=== PATIENT | female | born 1950 | race Caucasian/White ===

== ENCOUNTER 2022-06-24 10:30 | Outpatient (RCR) | payer OTHER, SELFPAY | END 2023-06-15 23:59 | disposition home or self-care (01) | PROVIDERS: PCP Family Medicine; Visit Provider Orthopaedic Surgery Sports Medicine | DX: M25.562 Pain in left knee (principal); Z51.89 Encounter for other specified aftercare | CPT/HCPCS: 97110; 97140; X5282 ==

== ENCOUNTER 2022-07-21 11:15 | Outpatient (RCR) | payer OTHER, SELFPAY | END 2023-03-21 13:41 | disposition home or self-care (01) | PROVIDERS: PCP Family Medicine; Visit Provider Family Medicine | DX: H81.10 Benign paroxysmal vertigo, unspecified ear (principal); Z51.89 Encounter for other specified aftercare | CPT/HCPCS: 95992; 97162; 97535 ==

== ENCOUNTER 2023-08-31 07:59 | Outpatient (CLI) | payer MEDICARE, BC, SELFPAY ==
--- NOTE | 2023-08-31 08:15 | CRLHL7_ITS ---
For Patients: As a result of the Century Cures Act, medical imaging exams and procedure reports are released immediately into your electronic medical record. You may view this report before your referring provider. If you have questions, please contact your health care provider. INDICATION: Pituitary adenoma. TECHNIQUE: Multiplanar multisequence MR imaging acquired the brain and sella prior to and following intravenous contrast. COMPARISON: MRI brain 04/12/2022. FINDINGS: Heterogeneously enhancing lesion centered within the right sella measuring 15 x 13 x 14 mm (TR/AP/CC), not significantly changed. Mild leftward deviation of the pituitary infundibulum. No mass effect on the optic chiasm or prechiasmatic optic nerves. The lesion extends to the medial right cavernous internal carotid artery without convincing right cavernous sinus invasion. Prominence of the ventricles and sulci compatible with mild diffuse cerebral volume loss. No midline shift or hydrocephalus. Stable patchy and scattered FLAIR hyperintensities in the supratentorial white matter and carrington, typical for moderate chronic microvascular ischemic changes. No intracranial hemorrhage or pathologic extra-axial fluid collection. No diffusion restriction to suggest acute infarction. No pathologic intra-axial enhancement. Developmental venous anomaly right cerebellar hemisphere, an anatomic variant. The major arterial flow voids of the skullbase are preserved. The globes are symmetric. Minimal ethmoid sinus mucosal thickening. Trace mastoid fluid bilaterally. IMPRESSION: 1. No significant change compared to the MRI dated 04/12/2022. 2. 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 No mass effect on the optic chiasm or cavernous sinus invasion. 3. Moderate chronic microvascular ischemic changes and mild diffuse cerebral volume loss. Dictated by Ean Carrillo MD @ 08/31/2023 6:01:34 PM (Electronically Signed)
== END 2023-08-31 08:00 | disposition home or self-care (01) ==
LOC: MRI 08:02
PROVIDERS: PCP Surgery; Visit Provider Family Medicine
DX: D35.2 Benign neoplasm of pituitary gland (principal); I67.82 Cerebral ischemia
CPT/HCPCS: 70553; A9575

== ENCOUNTER 2023-09-11 07:49 | Outpatient (CLI) | payer MEDICARE, BC, SELFPAY ==
--- NOTE | 2023-09-11 09:04 | W.ANESCHARGE ---
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
--- NOTE | 2023-09-11 10:22 | W.ANESCHARGE ---
Anesthesia Charges Start Date/Time Anesthesia Start Date: 09/11/23 Anesthesia Start Time: 08:34 Stop Date/Time Anesthesia Stop Date: 09/11/23 Anesthesia Stop Time: 09:02 Summary Extremes of Age - Over 70 or under 1: MDA
== END 2023-09-11 07:50 | disposition home or self-care (01) ==
PROVIDERS: PCP Surgery; Visit Provider Internal Medicine Gastroenterology
DX: Z12.11 Encounter for screening for malignant neoplasm of colon (principal); K63.5 Polyp of colon; K64.8 Other hemorrhoids; Z86.010 Personal history of colon polyps
CPT/HCPCS: 00811; 45385; 88305; 99100; J2704

== ENCOUNTER 2024-03-20 09:03 | Outpatient (CLI) | payer MEDICARE, BC, SELFPAY ==
--- NOTE | 2024-03-20 09:15 | MR_ITS ---
Patient: JB KIM Facility:?[facility] Patient ID:?[id number] Site Patient ID:?[id number]. Site :?[id number] Study:?MRI-Abdomen W/ and W/O Cont 14cc dotarem MRCP/Panc-03/20/2024 10:30:23 AM Ordering Physician:?Adan Orellana Final Report: INDICATION: Cystic lesions pancreas; follow-up. COMPARISON: MRCP and MRI of the abdomen 04/12/2022, 11/12/2020, May 08, 2019 and May 09, 2018. TECHNIQUE: MRCP; precontrast T1 and T2 weighted imaging; T2 haste imaging; diffusion- weighted imaging; in and out of phase imaging; postcontrast imaging; 14 cc of MultiHance contrast was injected. FINDINGS: Multiple cystic lesions identified in the pancreas. A 1.4 cm lesion in the tail of the pancreas. A 0.9 cm lesion in the head of the pancreas. A 0.9 cm lesion and 0.7 cm lesion in the uncinate process of the pancreas. No evidence of pancreatic ductal dilatation. Cholelithiasis. No biliary duct dilatation. The liver, spleen and adrenal glands are normal. IMPRESSION: 1. Multiple cystic lesions pancreas; side-branch IPMN; stable; follow-up in 2 years suggested. 2. Gallstones Dictated by Marcia Griggs MD @ 03/21/2024 1:15:47 PM Signed by:?Marcia Griggs MD @03/21/2024 1:15:47 PM (Electronic Signature)
== END 2024-03-20 09:04 | disposition home or self-care (01) ==
LOC: MRI 09:07
PROVIDERS: PCP Surgery
DX: K86.2 Cyst of pancreas (principal); K80.20 Calculus of gallbladder without cholecystitis without obstruction
CPT/HCPCS: 74183; A9575

== ENCOUNTER 2024-04-26 14:59 | Emergency (ER) | payer MEDICARE, BC, SELFPAY ==
[2024-04-26] VITALS (10 sets, daily range): BP systolic 115–133; BP diastolic 88–105; PULSE 79–142; RESP 18; TEMP 36.4; O2SAT 95–97; BMI 23.4
--- NOTE | 2024-04-26 15:16 | CRLHL7_ITS ---
For Patients: As a result of the Century Cures Act, medical imaging exams and procedure reports are released immediately into your electronic medical record. You may view this report before your referring provider. If you have questions, please contact your health care provider. Indication: Tachycardia Comparison: None available. Technique: Single AP view chest Findings: There is hyperinflation and chronic interstitial change. There is no focal consolidation, effusion, or pneumothorax. The cardiac silhouette is mildly prominent. The bony thorax is grossly intact. Impression: No acute cardiopulmonary abnormality. Dictated by Alvarez Diaz MD @ 04/26/2024 4:13:24 PM (Electronically Signed)
[2024-04-26] MEDS: 0.9 % SODIUM CHLORIDE 1000 ml 1,000 ML IV (15:30)
[2024-04-26 15:35] LABS: Basophils Absolute Auto 0.05 K/uL (0.00-0.30); Basophils Percent Auto 0.7 % (0.0-3.0); Eosinophils Absolute Auto 0.25 K/uL (0.00-0.50); Eosinophils Percent Auto 3.6 % (0.0-7.0); Hematocrit 43.7 % (33.0-51.0); Hemoglobin* 14.3 gm/dL (12.0-16.0); Lymphocytes Absolute Auto 2.31 K/uL (0.90-2.90); Lymphocytes Percent Auto 33.5 % (20-44); Mean Corpuscular HGB Conc 33 gm/dL (32-36); Mean Corpuscular Hemoglobin 30 pg (26-34); Mean Corpuscular Volume 93 fL (80-100); Monocytes Percent Auto 8.9 % (0.0-11.0); Neutrophils Absolute Auto 3.67 K/uL (1.7-7.0); Neutrophils Percent Auto 53.3 % (42.0-72.0); Platelet Count* 313 K/uL (140-440); RDW Coefficient of Variation % 13.2 % (11.5-15.5); Red Blood Count 4.72 m/uL (4.00-5.20); White Blood Count* 6.89 K/uL (4.50-11.00)
[2024-04-26 15:36] LABS: Slide Review Reflex No
[2024-04-26 15:42] LABS: Troponin, Point-of-Care* 0.01 ng/ml (0.01-0.04)
[2024-04-26] MEDS: ADENOSINE 6 MG/2ML INJ IVP (15:45)
[2024-04-26 15:48] LABS: Chloride* 104 mmol/L (96-114); Potassium* 3.9 mmol/L (3.6-5.1); Sodium* 138 mmol/L (135-149)
[2024-04-26 15:51] LABS: Anion Gap 9 mEq/L (7-15); Blood Urea Nitrogen* 16 mg/dL (7-30); Carbon Dioxide* 25 mmol/L (20-32); Creatinine* 0.7 mg/dL (0.5-1.5); Estimated Glomerular Filt Rate 92 ml/min
[2024-04-26 15:52] LABS: Calcium* 9.1 mg/dL (8.4-10.6); Glucose* 89 mg/dL (60-115); Magnesium* 1.9 mg/dL (1.5-2.6)
--- NOTE | 2024-04-26 16:10 | ED_ITS ---
HPI - General Adult General Date Seen: 04/26/24 Chief complaint: Unspecified Complaint, Adult Stated complaint: Elevated heartrate Time Seen by Provider: 04/26/24 15:07 Source: patient, RN notes reviewed and old records reviewed Mode of arrival: ambulatory Limitations: no limitations History of Present Illness HPI narrative: Patient is a 73-year-old woman he sent here from clinic. She had gone to clinic just for an annual exam, no specific complaints. Noted to be tachycardic there and had an EKG, suspicion of SVT and was sent here. She denies palpitations, chest pain, shortness of breath, no recent illness, fevers, vomiting, diarrhea, black or bloody stools etcetera. No history of arrhythmia that she knows of but she does say that her dad and brother both had atrial fibrillation. Her dad is . She is unsure whether her brother is anticoagulated. She does not smoke or drink, here with her . Related Data Home Medications ?Medication ?Instructions ?Recorded ?Confirmed famotidine 20 mg tablet 20 mg PO DAILY 07/27/23 04/26/24 levothyroxine 88 mcg tablet mcg PO 07/27/23 07/27/23 calcium phos,dibas-vitamin D3 PO 04/26/24 vitamin B complex PO 04/26/24 Previous Rx's ?Medication ?Instructions ?Recorded apixaban 5 mg tablet (Eliquis) 5 mg PO BID #60 tabs 04/26/24 Allergies Allergy/AdvReac Type Severity Reaction Status Date / Time No Known Drug Allergies Allergy Verified 04/26/24 15:04 Review of Systems Status of ROS: Reports: 10 or more systems reviewed and unremarkable except as noted in History and below PFSH PFS Social History Smoking Status: Never smoker Do you use any of these nicotine containing products: None Second hand tobacco smoke exposure: No How often do you have a drink containing alcohol: never AUDIT-C Alcohol total score: 0 Non-prescribed substance use: denies use service: No Exam Narrative: Exam Narrative: Vital signs as noted above. In general, an alert, well-appearing patient. Breathing easily. Head: Normocephalic, atraumatic. Eyes: Pupils are equal reactive. Extraocular movements are full. Conjunctivae are normal. ENT: Mucous membranes are moist. Neck: Supple without lymphadenopathy. Heart: Tachycardic, regular. No significant murmur. Lungs: Clear bilaterally. No increased work of breathing, crackles or wheezes. Abdomen: Soft and nontender. No organomegaly. Extremities: Well perfused. No edema. No calf tenderness. Pulses intact. Neurologic: Patient is alert and oriented to person and place. Speech is fluent. Face is symmetric. Moves all extremities equally. Affect: Normal. Skin: Warm and dry. Well perfused. Const: Vital Signs, click to edit/add: Vital Signs - 24 hr 04/26/24 15:00 04/26/24 15:16 Temperature 97.6 F Pulse Rate [Pulse Oximeter] 142 H Respiratory Rate 18 Blood Pressure [Ri ght Upper Arm] 131/88 Pulse Oximetry 97 97 Oxygen Delivery Me thod Room Air Documenting provider has reviewed patient's vital signs: yes Course Course ED Course: Patient had an EKG here, this shows an atrial tachycardia ventricular rate of 136 beats per minute. There is subtle variability in her rate, no obvious P waves. I do not think this is likely SVT, suspect atrial flutter. No acute ST segment changes with the exception of T-wave inversion in V2. I elected to try adenosine on the off chance this was an SVT, she had 6 mg, she had bradycardia after that with clear flutter waves. Labs drawn, thus far she has a normal white blood cell count of 6.9 and hemoglobin of 14.3, electrolytes normal, magnesium 1.9, TSH pending. Point of care troponin was 0.01. It is unclear how long she has been in this rhythm, I do not think cardioversion is safe and I recommended against that. Will try rate control, plan for admission to the hospital. Began discussion of anticoagulation as well. We gave a dose of diltiazem here, patient actually converted to sinus rhythm shortly thereafter with a ventricular rate of 85 beats per minute. EKG repeated, this shows a sinus rhythm, first-degree AV block with a KS of 220. Ventricular rate of 79. No acute ST segment changes, T-waves are unremarkable. At this time I think it is reasonable to discharge home. I did recommend at least a short course of anticoagulation, she notes that she has a muscular dystrophy and walks with a cane, but has not fallen for quite some time. I think particularly in light of the fact that she spontaneously converted it would be best to err on the side of anticoagulation right now. I asked her to follow up with Dr. Hope in the near future to discuss duration of anticoagulation. I prescribed Eliquis. Her TSH returned at 5, free T4 is pending. In any case, would not suspect significant hyperthyroidism, will discharge home and call with results of needed. For recurrent symptoms, chest pain, difficulty breathing, lightheadedness or fainting etcetera, return any time. Otherwise outpatient follow-up as discussed. Vital Signs Vital signs: Initial Vital Signs Temperature 97.6 F 04/26/24 15:00 Temperature Source Temporal Artery Scan 04/26/24 15:00 Pulse Rate 142 H 04/26/24 15:00 Respiratory Rate 18 04/26/24 15:00 Blood Pressure 131/88 04/26/24 15:00 Blood Pressure Mean 102 04/26/24 15:00 Blood Pressure Position Sitting 04/26/24 15:00 Pulse Oximetry 97 04/26/24 15:00 Oxygen Delivery Method Room Air 04/26/24 15:00 Vital Signs Temperature 97.6 F 04/26/24 15:00 Pulse Rate 142 H 04/26/24 15:00 Respiratory Rate 18 04/26/24 15:00 Blood Pressure 131/88 04/26/24 15:00 Pulse Oximetry 97 04/26/24 15:00 Oxygen Delivery Method Room Air 04/26/24 15:00 Temperature 97.6 F 04/26/24 15:00 Pulse Rate 142 H 04/26/24 15:00 Respiratory Rate 18 04/26/24 15:00 Blood Pressure 131/88 04/26/24 15:00 Pulse Oximetry 97 04/26/24 15:16 Oxygen Delivery Method Room Air 04/26/24 15:00 Medications Administered Medications: Discontinued Medications Generic Name Dose Route Start Last Admin Trade Name Freq PRN Reason Stop Dose Admin Adenosine 6 mg 04/26/24 15:27 04/26/24 15:45 Adenosine 6 Mg/2ml Inj IVP 04/26/24 15:28 6 mg ONCE ONE Administration Diltiazem HCl 10 mg 04/26/24 16:05 04/26/24 16:21 Diltiazem 5 Mg/Ml Inj IVP 04/26/24 16:06 10 mg ONCE ONE Administration Sodium Chloride 1,000 mls @ 1,000 mls/hr 04/26/24 15:30 04/26/24 16:39 0.9 % Sodium Chloride 1000 Ml IV 04/26/24 16:29 Infused .Q1H MARIA ELENA Infusion Medical Decision Making Lab Data Labs: Lab Results 04/26/24 Range/Units 15:22 WBC 6.89 (4.50-11.00) K/uL RBC 4.72 (4.00-5.20) m/uL Hgb 14.3 (12.0-16.0) gm/dL Hct 43.7 (33.0-51.0) % MCV 93 (80-100) fL MCH 30 (26-34) pg MCHC 33 (32-36) gm/dL RDW Coeff of Sriram 13.2 (11.5-15.5) % Plt Count 313 (140-440) K/uL Neut % (Auto) 53.3 (42.0-72.0) % Lymph % (Auto) 33.5 (20-44) % [place] % (Auto) 8.9 (0.0-11.0) % Eos % (Auto) 3.6 (0.0-7.0) % Baso % (Auto) 0.7 (0.0-3.0) % Neut # (Auto) 3.67 (1.7-7.0) K/uL Lymph # (Auto) 2.31 (0.90-2.90) K/uL [place] # (Auto) 0.60 (0.00-0.90) K/UL Eos # (Auto) 0.25 (0.00-0.50) K/uL Baso # (Auto) 0.05 (0.00-0.30) K/uL Abs Immat Gran (auto) 0.00 (0.00-0.30) K/uL Imm/Tot Granulo (auto) 0.0 % Sodium 138 (135-149) mmol/L Potassium 3.9 (3.6-5.1) mmol/L Chloride 104 (96-114) mmol/L Carbon Dioxide 25 (20-32) mmol/L Anion Gap 9 (7-15) mEq/L BUN 16 (7-30) mg/dL Creatinine 0.7 (0.5-1.5) mg/dL Estimated Creat Clear 48.30 Estimated GFR 92 ml/min Glucose 89 (60-115) mg/dL Calcium 9.1 (8.4-10.6) mg/dL Magnesium 1.9 (1.5-2.6) mg/dL TSH 5.970 H (0.270-4.200) uIU/mL POC Troponin I 0.01 (0.01-0.04) ng/ml Discharge Plan Discharge Clinical Impression: Atrial flutter with rapid ventricular response Patient Disposition: Home, Self-Care Condition: Improved Instructions: Atrial Flutter (DC), Blood Thinners (ED) Additional Instructions: Would recommend at least short term anticoagulation, please make a follow-up appointment with your primary doctor to discuss further. If you have palpitations, chest pain, difficulty breathing, other worsening, return any time. Prescriptions: New Eliquis 5 mg tablet 5 mg PO BID Qty: 60 2RF No Action levothyroxine 88 mcg tablet PO famotidine 20 mg tablet 20 mg PO DAILY vitamin B complex [Vitamin B-50 Complex] PO calcium phos,dibas-vitamin D3 [Vitamin D (with calcium)] PO Follow Up/Referrals: Jimmy Hope MD [Primary Care Provider] - Stand Alone Forms: [facility] Info Instructions
[2024-04-26] MEDS: dilTIAZem 5 MG/ML inj 10 MG IVP (16:21)
[2024-04-26 17:16] LABS: Free T4 Free Thyroxine* 1.56 ng/dL (0.70-1.85)
== END 2024-04-26 17:09 | disposition home or self-care (01) ==
PROVIDERS: Emergency Provider Emergency Medicine; PCP Surgery
DX: I48.20 Chronic atrial fibrillation, unspecified (principal)
CPT/HCPCS: 36415; 71045; 80048; 83735; 84439; 84443; 84484; 85025; 93005; 94761; 99284; 99285; J0153; J7030

== ENCOUNTER 2024-05-01 13:08 | Emergency (ER) | payer MEDICARE, BC, SELFPAY ==
[2024-05-01] VITALS (11 sets, daily range): BP systolic 114–123; BP diastolic 87–100; PULSE 73–142; RESP 16–18; TEMP 36.6; O2SAT 93–96; BMI 23.4
--- NOTE | 2024-05-01 13:15 | ED_ITS ---
HPI - General Adult General Chief complaint: Arrhythmia/Palpitations Stated complaint: Tachy at lunch -[facility] sent from [facility] Time Seen by Provider: 05/01/24 13:14 History of Present Illness HPI narrative: Patient here for tachycardia . Here for same event last week and responded to diltiazem. She does not know when she flipped into it , daughter noted at lunch today. Asymptomatic. Stopped Eliquis , started a baby aspirin because Eliquis wasn't tolerated well. 73-year-old woman presenting to the emergency department with concern of rapid heart rate. Per my review of records was actually seen in this department last week with suspected atrial flutter. Did receive diltiazem during this evaluation and apparently subsequently converted. Daughter just happened to check her pulse today at lunch noting it to be rapid. Is not feeling particularly unwell otherwise. Had been recommended to be taking Eliquis but thought that she might be feeling more lightheaded with the Eliquis and so started a baby aspirin instead. Is not feeling short of breath. No chest pain. Incidentally has trouble taking larger pills in particular. Related Data Home Medications ?Medication ?Instructions ?Recorded ?Confirmed famotidine 20 mg tablet 20 mg PO DAILY 07/27/23 04/26/24 levothyroxine 88 mcg tablet mcg PO 07/27/23 07/27/23 calcium phos,dibas-vitamin D3 PO 04/26/24 vitamin B complex PO 04/26/24 aspirin 81 mg capsule 81 mg PO DAILY 05/01/24 05/01/24 Previous Rx's ?Medication ?Instructions ?Recorded apixaban 5 mg tablet (Eliquis) 5 mg PO BID #60 tabs 04/26/24 diltiazem HCl 120 mg capsule,24 120 mg PO DAILY #30 caps 05/01/24 hr,extended release Allergies Allergy/AdvReac Type Severity Reaction Status Date / Time No Known Drug Allergies Allergy Verified 04/26/24 15:04 Review of Systems Status of ROS: Reports: 6 or more systems reviewed and unremarkable except as noted in History and below PFSH PFS Social History Smoking Status: Never smoker Do you use any of these nicotine containing products: None Second hand tobacco smoke exposure: No How often do you have a drink containing alcohol: never AUDIT-C Alcohol total score: 0 Non-prescribed substance use: denies use service: No Exam Narrative: Exam Narrative: Pleasant. NAD. Breathing easily. Lungs are clear. Next lower extremities without notable edema. Well-perfused. Heart in tachycardic what appears to be regular rhythm. Murmur noted. Abdomen soft nontender. Cranial nerves 2-12 intact. Const: Vital Signs, click to edit/add: Vital Signs - 24 hr 05/01/24 13:20 05/01/24 13:20 05/01/24 13:21 Temperature 97.9 F Pulse Rate 138 H 139 H Pulse Rate [Pulse Oximeter] 140 H Respiratory Rate 18 Blood Pressure 123/100 H Blood Pressure [Ri ght Upper Arm] 123/100 H Pulse Oximetry 94 94 94 Oxygen Delivery Me thod Room Air 05/01/24 13:30 05/01/24 13:45 05/01/24 13:59 Temperature Pulse Rate 125 H 128 H 142 H Pulse Rate [Pulse Oximeter] Respiratory Rate Blood Pressure 114/87 Blood Pressure [Ri ght Upper Arm] Pulse Oximetry 95 93 94 Oxygen Delivery Me thod 05/01/24 14:00 05/01/24 14:15 05/01/24 14:30 Temperature Pulse Rate 77 81 78 Pulse Rate [Pulse Oximeter] Respiratory Rate 16 Blood Pressure Blood Pressure [Ri ght Upper Arm] Pulse Oximetry 94 95 94 Oxygen Delivery Me thod 05/01/24 14:48 05/01/24 15:00 05/01/24 15:15 Temperature Pulse Rate 82 75 73 Pulse Rate [Pulse Oximeter] Respiratory Rate Blood Pressure Blood Pressure [Ri ght Upper Arm] Pulse Oximetry 96 95 94 Oxygen Delivery Me thod Documenting provider has reviewed patient's vital signs: yes Course Vital Signs Vital signs: Initial Vital Signs Temperature 97.9 F 05/01/24 13:20 Temperature Source Temporal Artery Scan 05/01/24 13:20 Pulse Rate 138 H 05/01/24 13:20 Respiratory Rate 18 05/01/24 13:20 Blood Pressure 123/100 H 05/01/24 13:20 Blood Pressure Mean 107 H 05/01/24 13:20 Blood Pressure Position Sitting 05/01/24 13:20 Pulse Oximetry 94 05/01/24 13:20 Oxygen Delivery Method Room Air 05/01/24 13:20 Vital Signs Temperature 97.9 F 05/01/24 13:20 Pulse Rate 138 H 05/01/24 13:20 Respiratory Rate 18 05/01/24 13:20 Blood Pressure 123/100 H 05/01/24 13:20 Pulse Oximetry 94 05/01/24 13:20 Oxygen Delivery Method Room Air 05/01/24 13:20 Temperature 97.9 F 05/01/24 13:20 Pulse Rate 73 05/01/24 15:15 Respiratory Rate 16 05/01/24 14:30 Blood Pressure 114/87 05/01/24 13:59 Pulse Oximetry 94 05/01/24 15:15 Oxygen Delivery Method Room Air 05/01/24 13:20 Medications Administered Medications: Discontinued Medications Generic Name Dose Route Start Last Admin Trade Name Freq PRN Reason Stop Dose Admin Diltiazem HCl 20 mg 05/01/24 13:42 05/01/24 15:07 Diltiazem 5 Mg/Ml Inj IVP 05/01/24 13:43 Not Given ONCE ONE Sodium Chloride 1,000 mls @ 1,000 mls/hr 05/01/24 13:42 05/01/24 15:06 0.9 % Sodium Chloride 1000 Ml IV 05/01/24 14:41 Infused .Q1H ONE Infusion Medical Decision Making MDM Narrative Medical decision making narrative: Does appear to be in an AFib or aflutter. I have reviewed all EKGs. See below. will be placing IV and slowing rate with diltiazem for better evaluation. Continue to monitor on surveillance monitor. Probably does not need recheck of labs pending further developments. During placement of IV appears to have spontaneously converted into normal sinus. See below. Received L of normal saline but not the diltiazem. Reviewed EKGs from prior visit and clinic and today with Cardiology. They do suspect an unusual atrial flutter Otherwise feeling well. Blood pressure and pulse are good upon departure. See patient discharge plan for further discussion/recommendations. Medical Records Medical records reviewed: Yes I reviewed the patient's medical records Lab Data Lab results reviewed: Yes I reviewed the patient's lab results (From prior visit) ECG Data Attestation: I personally reviewed and interpreted this ECG as follows: (EKGs reviewed from clinic which appear to show an SVT or sinus tach between 133 and 134. EKG 1. Here in the ER with possible atrial fibrillation rate of 127. It is not exactly as regular as I might expect with an aflutter. Second EKG after apparent spontaneous conversion with IV start is sinus 75) Critical Care Time Critical Care Time Critical Care Time: Yes Attestation: The patient required my highest level preparedness to intervene emergently and I personally spent this critical care time directly and personally managing the patient. This critical care time included: Obtaining a history; Examining the patient; Pulse oximetry; Ordering and reviewing of studies; Arranging urgent treatment with development of a management plan; Evaluation of patients response to treatment; Frequent reassessment discussions with other providers. This critical care time was performed to assess and manage the high probability of imminent life-threatening deterioration that could result in multiorgan failure. It was exclusive of separate billable procedures and treating other patients and teaching time. Total Critical Care Time in Minutes: 50 Discharge Plan Discharge Clinical Impression: Atrial flutter, Tachyarrhythmia Patient Disposition: Home w/ Parent or Adult Condition: Improved Additional Instructions: I spoke with [facility] today. They are hoping to get you in earlier than scheduled. Otherwise follow-up with the monitoring and echocardiogram as planned. Continue to focus on hydration probably drinking around 2-3 L of water/liquid daily. Recommendations are to take diltiazem daily as discussed. If you cannot tolerate these pills, there might be your a kind we can crush but then you might have to take it twice a day. I am not sure there is a liquid option. Can check with your pharmacy if necessary. This medicine is to slow down the rate of your heart and decrease the likelihood that you go into an inefficient or uncomfortable rapid rhythm. Recommendations also are to start Eliquis. I do think that the symptoms you are describing are more likely related to the rate of your heart than a reaction otherwise to the medication If you do not want to take the Eliquis, at least take a low-dose aspirin daily. Prescriptions: New diltiazem HCl 120 mg capsule,extended release 24 hr 120 mg PO DAILY Qty: 30 1RF No Action levothyroxine 88 mcg tablet PO famotidine 20 mg tablet 20 mg PO DAILY aspirin 81 mg capsule 81 mg PO DAILY vitamin B complex [Vitamin B-50 Complex] PO calcium phos,dibas-vitamin D3 [Vitamin D (with calcium)] PO Eliquis 5 mg tablet 5 mg PO BID Qty: 60 2RF Follow Up/Referrals: Jimmy Hope MD [Primary Care Provider] - Stand Alone Forms: [employer] Info Instructions
[2024-05-01] MEDS: 0.9 % SODIUM CHLORIDE 1000 ml 1,000 ML IV (13:59)
== END 2024-05-01 15:48 | disposition home or self-care (01) ==
PROVIDERS: Emergency Provider Family Medicine; PCP Surgery
DX: I48.92 Unspecified atrial flutter (principal); R00.0 Tachycardia, unspecified
CPT/HCPCS: 93005; 99284; 99285; 99291; J7030

== ENCOUNTER 2024-09-23 14:02 | Emergency (ER) | payer MEDICARE, BC, SELFPAY ==
[2024-09-23] VITALS (18 sets, daily range): BP systolic 96–126; BP diastolic 67–96; PULSE 69–136; RESP 20; TEMP 36.5; O2SAT 93–97; BMI 21.8
[2024-09-23] MEDS: 0.9 % SODIUM CHLORIDE 1000 ml 1,000 ML IV (14:25)
[2024-09-23] MEDS: dilTIAZem 5 MG/ML inj 20 MG IVP (14:25)
[2024-09-23 14:31] LABS: Lactate* 2.7 mmol/L (0.5-1.9)
[2024-09-23 14:39] LABS: Basophils Absolute Auto 0.05 K/uL (0.00-0.30); Basophils Percent Auto 0.6 % (0.0-3.0); Eosinophils Absolute Auto 0.13 K/uL (0.00-0.50); Eosinophils Percent Auto 1.7 % (0.0-7.0); Hematocrit 41.8 % (33.0-51.0); Hemoglobin* 13.5 gm/dL (12.0-16.0); Immature Granulocytes Abs Auto 0.01 K/uL (0.00-0.30); Immature Granulocytes Pct Auto 0.1 %; Lymphocytes Absolute Auto 2.11 K/uL (0.90-2.90); Lymphocytes Percent Auto 27.1 % (20-44); Mean Corpuscular HGB Conc 32 gm/dL (32-36); Mean Corpuscular Hemoglobin 30 pg (26-34); Mean Corpuscular Volume 94 fL (80-100); Monocytes Percent Auto 7.1 % (0.0-11.0); Neutrophils Absolute Auto 4.93 K/uL (1.7-7.0); Neutrophils Percent Auto 63.4 % (42.0-72.0); Platelet Count* 270 K/uL (140-440); Red Blood Count 4.47 m/uL (4.00-5.20); White Blood Count* 7.78 K/uL (4.50-11.00)
[2024-09-23 14:48] LABS: Albumin* 4.2 g/dL (3.3-5.0); Chloride* 98 mmol/L (96-114); Potassium* 3.6 mmol/L (3.6-5.1); Sodium* 134 mmol/L (135-149)
[2024-09-23 14:50] LABS: Creatinine* 0.8 mg/dL (0.5-1.5); Est. Creatinine Clearance* 50.18; Estimated Glomerular Filt Rate 79 ml/min
[2024-09-23 14:51] LABS: Alanine Aminotransferase* 25 U/L (4-35); Alkaline Phosphatase* 66 U/L (40-150); Anion Gap 11 mEq/L (7-15); Aspartate Amino Transferase* 30 U/L (12-35); Bilirubin Direct* 0.1 mg/dL (0.0-0.5); Bilirubin Total* 0.6 mg/dL (0.1-1.5); Blood Urea Nitrogen* 22 mg/dL (7-30); Calcium* 9.1 mg/dL (8.4-10.6); Carbon Dioxide* 25 mmol/L (20-32); Glucose* 134 mg/dL (60-115); Magnesium* 1.8 mg/dL (1.5-2.6); Total Protein* 7.3 g/dL (6.0-8.3)
[2024-09-23 15:07] LABS: Troponin I* < 0.01 ng/mL (0.01-0.04)
[2024-09-23 15:12] LABS: Slide Review Reflex No
--- NOTE | 2024-09-23 15:19 | ED_ITS ---
HPI - General Adult General Chief complaint: Arrhythmia/Palpitations Stated complaint: A Fib Time Seen by Provider: 09/23/24 14:11 Source: patient Mode of arrival: ambulatory Limitations: no limitations History of Present Illness HPI narrative: 73-year-old female presenting to the ER today complaining of feeling unwell. Patient states that she woke up feeling normal this morning and then late morning started feeling unwell. She really can not describe it any more than that. She then took her pulse and it was in the 130s. She is not feeling short of breath. She is not dizzy or lightheaded. She denies chest pain. Patient does have a history of atrial flutter with that converted with diltiazem and then spontaneously converted the 2nd time this spring. She states that she saw cardiology and they did not recommend anticoagulant as she felt very dizzy when she was on Eliquis. She denies any recent illness. She denies changes in her appetite, diarrhea or decreased p.o. intake. Related Data Home Medications ?Medication ?Instructions ?Recorded ?Confirmed levothyroxine 88 mcg tablet mcg PO 07/27/23 07/27/23 calcium phos,dibas-vitamin D3 PO 04/26/24 vitamin B complex PO 04/26/24 aspirin 81 mg capsule 81 mg PO DAILY 05/01/24 09/23/24 rosuvastatin 5 mg tablet 5 mg PO DAILY 09/23/24 09/23/24 Previous Rx's ?Medication ?Instructions ?Recorded diltiazem HCl 120 mg capsule,24 120 mg PO DAILY #30 caps 05/01/24 hr,extended release Allergies Allergy/AdvReac Type Severity Reaction Status Date / Time No Known Drug Allergies Allergy Verified 04/26/24 15:04 Review of Systems Status of ROS: Reports: 10 or more systems reviewed and unremarkable except as noted in History and below PFSH PFS Social History Smoking Status: Never smoker Do you use any of these nicotine containing products: None Second hand tobacco smoke exposure: No How often do you have a drink containing alcohol: never AUDIT-C Alcohol total score: 0 Non-prescribed substance use: denies use service: No Exam Narrative: Exam Narrative: Well-nourished well-developed patient in no acute distress. Alert and oriented. Answers questions appropriately. Mood and affect are appropriate. Thoughts are goal oriented and rational. No tangential or magical thinking noted. Patient speaks in full sentences without needing to catch her breath. HEENT: Normocephalic atraumatic. Pupils are equally round reactive to light. Extraocular muscles are intact. Conjunctivae are moist without any icterus noted. Moist mucous membranes. Posterior pharynx is normal. Neck is soft. Cardiovascular: Tachycardic. Lungs: Clear to auscultation bilaterally no wheezes rhonchi or rales are appreciated. Patient takes deep breaths without any discomfort. Abdomen: Soft and nontender nondistended with normal bowel sounds. Extremities: Bilateral lower extremities are without edema. Skin: Well perfused. Const: Vital Signs, click to edit/add: Vital Signs - 24 hr 09/23/24 14:04 09/23/24 14:12 09/23/24 14:13 Temperature 97.7 F Pulse Rate 136 H 128 H Pulse Rate [Pulse Oximeter] 135 H Respiratory Rate 20 Blood Pressure 126/96 H Blood Pressure [Ri ght Upper Arm] 104/75 Pulse Oximetry 94 95 95 Oxygen Delivery Me thod Room Air 09/23/24 14:15 09/23/24 14:18 09/23/24 14:28 Temperature Pulse Rate 136 H 114 H Pulse Rate [Pulse Oximeter] Respiratory Rate Blood Pressure 107/68 Blood Pressure [Ri ght Upper Arm] Pulse Oximetry 95 96 93 Oxygen Delivery Me thod 09/23/24 14:30 09/23/24 14:36 09/23/24 14:42 Temperature Pulse Rate 101 H 79 84 Pulse Rate [Pulse Oximeter] Respiratory Rate Blood Pressure 96/69 107/74 Blood Pressure [Ri ght Upper Arm] Pulse Oximetry 94 94 94 Oxygen Delivery Me thod 09/23/24 14:45 Temperature Pulse Rate 80 Pulse Rate [Pulse Oximeter] Respiratory Rate Blood Pressure Blood Pressure [Ri ght Upper Arm] Pulse Oximetry 94 Oxygen Delivery Me thod Course Course ED Course: EKG, read by me, shows atrial flutter with a pulse of 130. Patient has an IV started and placed on the gambling monitor. On the monitor the pulse ranges from 130 to 135. 1 L of normal saline and Cardizem is ordered. Labs were drawn: CBC is normal. Sodium slightly down at 134, remainder of chemistries are normal. Glucose 134. LFTs are normal. Magnesium is normal. Troponin is normal. Lactate is elevated at 2.7. Patient's pulse came down into the 70s after Cardizem however, she did not convert into sinus rhythm and remained in a flutter. She remains hemodynamically stable and states that she feels significantly bet ter. Repeat EKG shows atrial flutter with a pulse of 68. I did speak to Cardiology, Dr. Bruce at [facility], he recommends anticoagulation, a ZIO patch and having her follow-up with cardiology. We also considered increasing her diltiazem however, her blood pressure is low at 107/74. I do not think she would tolerate increasing Cardizem at this time. Had this conversation with the patient, she states that she still has Eliquis at home and she is willing to give that another try. Vital Signs Vital signs: Initial Vital Signs Temperature 97.7 F 09/23/24 14:04 Temperature Source Temporal Artery Scan 09/23/24 14:04 Pulse Rate 135 H 09/23/24 14:04 Respiratory Rate 20 09/23/24 14:04 Blood Pressure 104/75 09/23/24 14:04 Blood Pressure Mean 84 09/23/24 14:04 Blood Pressure Position Sitting 09/23/24 14:04 Pulse Oximetry 94 09/23/24 14:04 Oxygen Delivery Method Room Air 09/23/24 14:04 Vital Signs Temperature 97.7 F 09/23/24 14:04 Pulse Rate 135 H 09/23/24 14:04 Respiratory Rate 20 09/23/24 14:04 Blood Pressure 104/75 09/23/24 14:04 Pulse Oximetry 94 09/23/24 14:04 Oxygen Delivery Method Room Air 09/23/24 14:04 Temperature 97.7 F 09/23/24 14:04 Pulse Rate 80 09/23/24 14:45 Respiratory Rate 20 09/23/24 14:04 Blood Pressure 107/74 09/23/24 14:42 Pulse Oximetry 94 09/23/24 14:45 Oxygen Delivery Method Room Air 09/23/24 14:04 Medications Administered Medications: Discontinued Medications Generic Name Dose Route Start Last Admin Trade Name Freq PRN Reason Stop Dose Admin Diltiazem HCl 20 mg 09/23/24 14:18 09/23/24 14:25 Diltiazem 5 Mg/Ml Inj IVP 09/23/24 14:19 20 mg ONCE ONE Administration Sodium Chloride 1,000 mls @ 1,000 mls/hr 09/23/24 14:30 09/23/24 14:25 0.9 % Sodium Chloride 1000 Ml IV 09/23/24 15:29 1,000 mls/hr .Q1H MARIA ELENA Administration Medical Decision Making MDM Narrative Medical decision making narrative: 73-year-old female with recurrent atrial flutter. Patient will restart her Eliquis. Will be sent home with a ZIO patch today. Will follow-up with cardiology. Lab Data Lab results reviewed: Yes I reviewed the patient's lab results Labs: Lab Results 09/23/24 Range/Units 14:22 WBC 7.78 (4.50-11.00) K/uL RBC 4.47 (4.00-5.20) m/uL Hgb 13.5 (12.0-16.0) gm/dL Hct 41.8 (33.0-51.0) % MCV 94 (80-100) fL MCH 30 (26-34) pg MCHC 32 (32-36) gm/dL RDW Coeff of Sriram 13.0 (11.5-15.5) % Plt Count 270 (140-440) K/uL Neut % (Auto) 63.4 (42.0-72.0) % Lymph % (Auto) 27.1 (20-44) % Schuyler % (Auto) 7.1 (0.0-11.0) % Eos % (Auto) 1.7 (0.0-7.0) % Baso % (Auto) 0.6 (0.0-3.0) % Neut # (Auto) 4.93 (1.7-7.0) K/uL Lymph # (Auto) 2.11 (0.90-2.90) K/uL Schuyler # (Auto) 0.60 (0.00-0.90) K/UL Eos # (Auto) 0.13 (0.00-0.50) K/uL Baso # (Auto) 0.05 (0.00-0.30) K/uL Abs Immat Gran (auto) 0.01 (0.00-0.30) K/uL Imm/Tot Granulo (auto) 0.1 % Sodium 134 L (135-149) mmol/L Potassium 3.6 (3.6-5.1) mmol/L Chloride 98 (96-114) mmol/L Carbon Dioxide 25 (20-32) mmol/L Anion Gap 11 (7-15) mEq/L BUN 22 (7-30) mg/dL Creatinine 0.8 (0.5-1.5) mg/dL Estimated Creat Clear 50.18 Estimated GFR 79 ml/min Glucose 134 H (60-115) mg/dL Lactate 2.7 H (0.5-1.9) mmol/L Calcium 9.1 (8.4-10.6) mg/dL Magnesium 1.8 (1.5-2.6) mg/dL Total Bilirubin 0.6 (0.1-1.5) mg/dL Direct Bilirubin 0.1 (0.0-0.5) mg/dL AST 30 (12-35) U/L ALT 25 (4-35) U/L Alkaline Phosphatase 66 (40-150) U/L Troponin I < 0.01 L (0.01-0.04) ng/mL Total Protein 7.3 (6.0-8.3) g/dL Albumin 4.2 (3.3-5.0) g/dL ECG Data Attestation: I personally reviewed and interpreted this ECG as follows: Critical Care Time Critical Care Time Total Critical Care Time in Minutes: 60 Discharge Plan Discharge Clinical Impression: Atrial flutter Instructions: Atrial Flutter (ED) Additional Instructions: Recommend restarting your Eliquis at 5 mg 2 times per day. Stop the aspirin. You will be sent home with a ZIO patch (heart monitor) to wear for 2 weeks. If you can get in to the director of automation in 2 weeks then they can go over the results of your heart monitor with you. If you cannot get in in 2 weeks then you should follow-up with your primary care provider. You do need to follow-up with cardiology. You can contact the director of automation that you had seen in the past for follow-up appointment. Return to the emergency department if you heart starts racing again or you feel unwell. Prescriptions: No Action levothyroxine 88 mcg tablet PO aspirin 81 mg capsule 81 mg PO DAILY diltiazem HCl 120 mg capsule,extended release 24 hr 120 mg PO DAILY Qty: 30 1RF vitamin B complex [Vitamin B-50 Complex] PO calcium phos,dibas-vitamin D3 [Vitamin D (with calcium)] PO rosuvastatin 5 mg tablet 5 mg PO DAILY Follow Up/Referrals: Jimmy Hope MD [Primary Care Provider] - Stand Alone Forms: [employer] Info Instructions
== END 2024-09-23 16:34 | disposition home or self-care (01) ==
PROVIDERS: Emergency Provider Family Medicine; PCP Surgery
DX: I48.92 Unspecified atrial flutter (principal)
CPT/HCPCS: 36415; 80048; 80076; 83605; 83735; 84484; 85025; 93005; 93246; 94761; 96361; 96374; 99284; 99285; J7030

== ENCOUNTER 2024-09-23 17:42 | Inpatient (IN) | payer MEDICARE, BC, SELFPAY ==
[2024-09-23] VITALS (20 sets, daily range): BP systolic 116–144; BP diastolic 79–111; PULSE 84–126; RESP 16; TEMP 36.3–36.7; O2SAT 94–97; BMI 22.1; BMI 22.9
--- NOTE | 2024-09-23 18:31 | ED.GENADULT ---
HPI - General Adult General Chief complaint: Arrhythmia/Palpitations Stated complaint: AFib - Racing heart Time Seen by Provider: 09/23/24 17:46 Source: patient Mode of arrival: ambulatory Limitations: no limitations History of Present Illness HPI narrative: 73-year-old female returning to the ER 2 hours after discharge for returning palpitations. Patient was seen 2 hours ago for atrial flutter which was rate controlled with diltiazem. Patient was feeling significantly better, pulse was in the 70s and she was discharged home. 2 hours have passed and patient has that same sensation of generalized not feeling well. She checked her pulse and it was in the 120s. He has been fluctuating between upper 90s and almost 130 for the last 20 minutes or so. Related Data Home Medications ?Medication ?Instructions ?Recorded ?Confirmed levothyroxine 88 mcg tablet mcg PO 07/27/23 07/27/23 calcium phos,dibas-vitamin D3 PO 04/26/24 vitamin B complex PO 04/26/24 aspirin 81 mg capsule 81 mg PO DAILY 05/01/24 09/23/24 rosuvastatin 5 mg tablet 5 mg PO DAILY 09/23/24 09/23/24 Previous Rx's ?Medication ?Instructions ?Recorded diltiazem HCl 120 mg capsule,24 120 mg PO DAILY #30 caps 05/01/24 hr,extended release Allergies Allergy/AdvReac Type Severity Reaction Status Date / Time No Known Drug Allergies Allergy Verified 04/26/24 15:04 Review of Systems Status of ROS: Reports: 10 or more systems reviewed and unremarkable except as noted in History and below [facility] Social History Smoking Status: Never smoker Do you use any of these nicotine containing products: None Second hand tobacco smoke exposure: No How often do you have a drink containing alcohol: never How often do you have six or more drinks on one occasion: Never AUDIT-C Alcohol total score: 0 Non-prescribed substance use: denies use service: No Exam Narrative: Exam Narrative: Well-nourished well-developed patient in no acute distress. Alert and oriented. Answers questions appropriately. Mood and affect are appropriate. Thoughts are goal oriented and rational. No tangential or magical thinking noted. Patient speaks in full sentences without needing to catch her breath. HEENT: Normocephalic atraumatic. Pupils are equally round reactive to light. Extraocular muscles are intact. Conjunctivae are moist without any icterus noted. Moist mucous membranes. Cardiovascular: Tachycardic Lungs: Clear to auscultation bilaterally. Extremities: Bilateral lower extremities are without edema. Skin: Well perfused without any obvious rashes. Const: Vital Signs, click to edit/add: Vital Signs - 24 hr 09/23/24 17:56 09/23/24 17:57 09/23/24 17:58 Temperature 97.3 F L Pulse Rate 110 H Pulse Rate [Pulse Oximeter] 116 H Respiratory Rate 16 Blood Pressure 116/79 Blood Pressure [Ri ght Upper Arm] 116/79 Pulse Oximetry 95 94 Oxygen Delivery Me thod Room Air 09/23/24 18:00 09/23/24 18:10 09/23/24 18:15 Temperature Pulse Rate 99 120 H Pulse Rate [Pulse Oximeter] Respiratory Rate Blood Pressure Blood Pressure [Ri ght Upper Arm] Pulse Oximetry 95 95 96 Oxygen Delivery Me thod 09/23/24 18:30 09/23/24 18:41 09/23/24 18:45 Temperature Pulse Rate 105 H 107 H 116 H Pulse Rate [Pulse Oximeter] Respiratory Rate Blood Pressure 130/111 H Blood Pressure [Ri ght Upper Arm] Pulse Oximetry 96 94 96 Oxygen Delivery Me thod 09/23/24 18:46 09/23/24 18:47 09/23/24 19:00 Temperature Pulse Rate 125 H 122 H 103 H Pulse Rate [Pulse Oximeter] Respiratory Rate Blood Pressure 144/108 H Blood Pressure [Ri ght Upper Arm] Pulse Oximetry 95 95 95 Oxygen Delivery Me thod 09/23/24 19:01 Temperature Pulse Rate 101 H Pulse Rate [Pulse Oximeter] Respiratory Rate Blood Pressure 123/89 Blood Pressure [Ri ght Upper Arm] Pulse Oximetry 96 Oxygen Delivery Me thod Course Course ED Course: EKG shows atrial flutter with a pulse of 98. However any movement causes her pulse to go up and she does go up into the 120s. Blood pressure is stable. Patient given dose of Eliquis. IV is established and patient was started on a diltiazem drip and diltiazem push of 10 mg. Because her lactate was elevated this afternoon, we did go ahead and repeat lactate levels. Lactate normalized to 0.8. Pulse came down into the high 90s, low 100s. Patient will be admitted for further management. Vital Signs Vital signs: Initial Vital Signs Blood Pressure 116/79 09/23/24 17:56 Blood Pressure Mean 91 09/23/24 17:56 Vital Signs Blood Pressure 116/79 09/23/24 17:56 Temperature 97.3 F L 09/23/24 17:58 Pulse Rate 101 H 09/23/24 19:01 Respiratory Rate 16 09/23/24 17:58 Blood Pressure 123/89 09/23/24 19:01 Pulse Oximetry 96 09/23/24 19:01 Oxygen Delivery Method Room Air 09/23/24 17:58 Medications Administered Medications: Generic Name Dose Route Start Last Admin Trade Name Freq PRN Reason Stop Dose Admin Diltiazem HCl 125 mg/ Sodium 125 mls @ 5 mls/hr 09/23/24 18:40 09/23/24 19:05 Chloride IVPB 10 mls/hr .TITRATE MARIA ELENA Administration Protocol Discontinued Medications Generic Name Dose Route Start Last Admin Trade Name Freq PRN Reason Stop Dose Admin Apixaban 5 mg 09/23/24 18:10 09/23/24 18:35 Apixaban 5 Mg Tablet PO 09/23/24 18:11 5 mg ONCE ONE Administration Diltiazem HCl 10 mg 09/23/24 18:10 09/23/24 19:12 Diltiazem 5 Mg/Ml Inj IVP 09/23/24 18:11 Not Given ONCE ONE Diltiazem HCl 125 mg/ Sodium 125 mls @ 10 mls/hr 09/23/24 18:05 09/23/24 18:35 Chloride IVPB 5 mls/hr .TITRATE MARIA ELENA Administration Protocol Medical Decision Making MDM Narrative Medical decision making narrative: 73-year-old female with atrial flutter, requiring diltiazem drip. Patient will be admitted for further management. Lab Data Lab results reviewed: Yes I reviewed the patient's lab results Labs: Lab Results 09/23/24 Range/Units 18:38 Lactate 0.8 (0.5-1.9) mmol/L ECG Data Attestation: I personally reviewed and interpreted this ECG as follows: Discharge Plan Discharge Clinical Impression: Atrial flutter Patient Disposition: Admitted As Observation Condition: Stable Prescriptions: No Action levothyroxine 88 mcg tablet PO aspirin 81 mg capsule 81 mg PO DAILY diltiazem HCl 120 mg capsule,extended release 24 hr 120 mg PO DAILY Qty: 30 1RF vitamin B complex [Vitamin B-50 Complex] PO calcium phos,dibas-vitamin D3 [Vitamin D (with calcium)] PO rosuvastatin 5 mg tablet 5 mg PO DAILY Follow Up/Referrals: Jimmy Hope MD [Primary Care Provider] -
[2024-09-23] MEDS: dilTIAZem HCL 125 MG in 0.9 % SODIUM CHLORIDE 100 ml 100 ML IVPB (18:35)
[2024-09-23] MEDS: APIXABAN 5 MG TABLET PO (18:35)
[2024-09-23 18:42] LABS: Lactate* 0.8 mmol/L (0.5-1.9)
[2024-09-23] MEDS: dilTIAZem HCL 125 MG in 0.9 % SODIUM CHLORIDE 100 ml 100 ML 10 MG IVPB (19:05)
[2024-09-23] MEDS: dilTIAZem 5 MG/ML inj 10 MG IVP (19:31)
--- NOTE | 2024-09-23 20:53 | P.IMHP_ITS ---
Hospitalist- H&P: HPI History of Present Illness Time Seen by Provider: 21:00 Date Seen: 09/24/24 Chief complaint: AFib - Racing heart Narrative: Beba Sierra is a 73 year old female with history of atrial flutter, inclusion body myositis, mixed hyperlipidemia, and dysphagia due to Sjogren syndrome who felt malaise and generally unwell today and noted a heart rate in the 130s. She denies chest pain or shortness of breath, dizziness or lightheadedness. Beba notes that she did not feel like eating much yesterday and so she had decreased oral intake of both food and fluids. She says she is likely dehydrated today from that. She was diagnosed with atrial flutter when she had 2 episodes in the spring which spontaneously converted. She tried being on Eliquis, but felt dizzy with that and then saw eligibility supervisor over the summer who thought that she could use aspirin instead since she was only ever found to be in atrial flutter which is an organized rhythm. She is agreeable to trying Eliquis today. 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 [IBM] (ICD-10) Seasonal allergic rhinitis due to pollen ?J30.1 - Allergic rhinitis due to pollen (ICD-10) Pituitary adenoma ?D35.2 - Benign neoplasm of pituitary gland (ICD-10) Mixed hyperlipidemia ?E78.2 - Mixed hyperlipidemia (ICD-10) Pancreas cyst ?K86.2 - Cyst of pancreas (ICD-10) Hypothyroidism ?E03.9 - Hypothyroidism, unspecified (ICD-10) Renal cyst ?N28.1 - Cyst of kidney, acquired (ICD-10) Sjogren syndrome ?M35.00 - Sjogren syndrome, unspecified (ICD-10) B12 deficiency ?E53.8 - Deficiency of other specified B group vitamins (ICD-10) Vitamin D deficiency ?E55.9 - Vitamin D deficiency, unspecified (ICD-10) Osteopenia of spine ?M85.88 - Other specified disorders of bone density and structure, other site (ICD-10) Pulmonary nodules ?R91.8 - Other nonspecific abnormal finding of lung field (ICD-10) Adenomatous colon polyp ?D12.6 - Benign neoplasm of colon, unspecified (ICD-10) Acne rosacea ?L71.9 - Rosacea, unspecified (ICD-10) Dysphagia ?R13.10 - Dysphagia, unspecified (ICD-10) Surgical History (Updated 09/24/24 @ 00:13 by Annette Ragland MD) Abnormal ultrasound ?R93.89 - Abnormal findings on diagnostic imaging of other specified body structures (ICD-10) H/O tympanostomy ?Z98.890 - Other specified postprocedural states (ICD-10) H/O foot surgery ?Z98.890 - Other specified postprocedural states (ICD-10) H/O lateral meniscus repair of left knee ?Z98.890 - Other specified postprocedural states (ICD-10) History of esophagogastroduodenoscopy (EGD) ?Z98.890 - Other specified postprocedural states (ICD-10) S/P colonoscopy ?Z98.890 - Other specified postprocedural states (ICD-10) Status post laparoscopic appendectomy ?Z90.49 - Acquired absence of other specified parts of digestive tract (ICD- 10) Family History (Updated 09/24/24 @ 00:15 by Annette Ragland MD) Father Pacemaker Mother Diabetes Social History (Updated 09/24/24 @ 00:14 by Annette Ragland MD) Narrative: . Daughter is PA at [employer]. Denies tob, EtOH, recreational drugs. FULL CODE. Smoking Status: Never smoker Do you use any of these nicotine containing products: None Second hand tobacco smoke exposure: No How often do you have a drink containing alcohol: never How often do you have six or more drinks on one occasion: Never AUDIT-C Alcohol total score: 0 Non-prescribed substance use: denies use service: No Meds Home Medications and Allergies Home Medications ?Medication ?Instructions ?Recorded ?Confirmed ?Type levothyroxine 88 mcg tablet 88 mcg PO DAILY 07/27/23 09/23/24 History calcium phos,dibas-vitamin D3 PO 04/26/24 History vitamin B complex PO 04/26/24 History aspirin 81 mg capsule 81 mg PO DAILY 05/01/24 09/23/24 History rosuvastatin 5 mg tablet 5 mg PO DAILY 09/23/24 09/23/24 History Allergies Allergy/AdvReac Type Severity Reaction Status Date / Time No Known Drug Allergies Allergy Verified 04/26/24 15:04 Exam Narrative: Exam Narrative: General: No acute distress. Awake alert oriented x3. HEENT: Normocephalic atraumatic, pupils equally round and reactive to light and accommodation. Oropharynx clear. Mucous membranes are moist. No cervical lymphadenopathy, thyromegaly or carotid bruits. No JVD. Cardiovascular: Irregularly irregular. No murmurs, gallops, or rubs. Chest: No increased work of breathing. Clear to auscultation bilaterally. No crackles or wheezes. Abdomen: Bowel sounds present. Soft, nondistended, nontender. No hepatosplenomegaly or masses. 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 No edema, no cyanosis or clubbing. Skin: No jaundice, no pallor, no rashes. Const: Vital Signs, click to edit/add: Vital Signs - 24 hr 09/23/24 17:56 09/23/24 17:57 09/23/24 17:58 Temperature 97.3 F L Pulse Rate 110 H Pulse Rate [Pulse Oximeter] 116 H Respiratory Rate 16 Blood Pressure 116/79 Blood Pressure [Ri ght Upper Arm] 116/79 Pulse Oximetry 95 94 Oxygen Delivery Me thod Room Air 09/23/24 18:00 09/23/24 18:10 09/23/24 18:15 Temperature Pulse Rate 99 120 H Pulse Rate [Pulse Oximeter] Respiratory Rate Blood Pressure Blood Pressure [Ri ght Upper Arm] Pulse Oximetry 95 95 96 Oxygen Delivery Me thod 09/23/24 18:30 09/23/24 18:41 09/23/24 18:45 Temperature Pulse Rate 105 H 107 H 116 H Pulse Rate [Pulse Oximeter] Respiratory Rate Blood Pressure 130/111 H Blood Pressure [Ri ght Upper Arm] Pulse Oximetry 96 94 96 Oxygen Delivery Me thod 09/23/24 18:46 09/23/24 18:47 09/23/24 19:00 Temperature Pulse Rate 125 H 122 H 103 H Pulse Rate [Pulse Oximeter] Respiratory Rate Blood Pressure 144/108 H Blood Pressure [Ri ght Upper Arm] Pulse Oximetry 95 95 95 [facility] 19:01 09/23/24 19:02 09/23/24 19:22 Temperature Pulse Rate 101 H 105 H 126 H Pulse Rate [Pulse Oximeter] Respiratory Rate Blood Pressure 123/89 Blood Pressure [Ri ght Upper Arm] Pulse Oximetry 96 94 97 [facility]/24 19:30 09/23/24 19:32 Temperature Pulse Rate 108 H 111 H Pulse Rate [Pulse Oximeter] Respiratory Rate Blood Pressure 127/92 H Blood Pressure [Ri ght Upper Arm] Pulse Oximetry 96 95 [facility] - H&P: Result Labs Labs: 09/23/2024 2:15 p.m. EKG: Atrial flutter with variable AV block, 130 beats per minute. Right superior axis deviation. Pulmonary disease pattern. Right ventricular hypertrophy. 09/15/2024 3:39 p.m. EKG: Atrial flutter with variable AV block, 60 beats per minute. Left axis deviation. Incomplete right bundle-branch block. 09/23/2024 6:07 p.m. EKG: Atrial fibrillation, 98 beats per minute, left axis deviation. 09/15/2024 8:01 p.m. EKG: Sinus rhythm with first-degree AV block, IN interval 240 milliseconds. 68 beats per minute. Low-voltage QRS. Lateral infarct, age undetermined. Assessment and Plan Assessment and plan (1) Atrial fibrillation with RVR: Problem comment: - Known h/o aflutter. Saw her eligibility supervisor in May and had ECHO, coronary calcium scoring, heart monitor. Previously didn't tolerate Eliquis due to dizziness, and since aflutter is an organized rhythm, shared decision was to use baby aspirin instead of Eliquis - Now has atrial fibrillation with RVR - Start Eliquis, patient agreeable - has converted to NSR on diltiazem drip, restart oral diltiazem by using short acting to help determine dose needed. Monitor on cardiac telemetry. Wean off drip after oral diltiazem dose. If stays in NSR, may be able to go home tomorrow. - I do not think we need to repeat ECHO since she had one in April (05/22/24 EF 55-60%, otherwise normal). 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
[2024-09-23] MEDS: dilTIAZem 30 MG TABLET 60 MG PO (22:21)
[2024-09-23 22:45] LABS: Thyroid Stimulating Hormone* 0.797 uIU/mL (0.270-4.20)
[2024-09-24] VITALS (13 sets, daily range): BP systolic 95–126; BP diastolic 64–85; PULSE 64–80; RESP 16–18; TEMP 35.9–36.9; O2SAT 93–98
[2024-09-24] MEDS: LEVOTHYROXINE 88 MCG TABLET PO (05:50)
[2024-09-24] MEDS: dilTIAZem 30 MG TABLET 60 MG PO ×2 (05:50→12:16)
--- NOTE | 2024-09-24 07:06 | PC.NURSE ---
ADMISSION/SHIFT NOTE: Pt pleasant, A&O, up SBA with a cane. Denies pain, SOB, CP, and N/V. Tele initially a-fib and pt was on a diltiazem drip, pt converted to sinus rhythm with a 1st degree HB around 2030 last evening and remained in a sinus rhythm overnight, diltiazem drip turned off at midnight. Pt given PO Cardizem overnight x2, did not give the 0330 dose because SBP <110 and HR in the low 60s, however gave a dose at 0550 because pt HR was in the low 100's when she got up to use the restroom, next dose due at noon.
[2024-09-24] MEDS: APIXABAN 5 MG TABLET PO ×2 (09:20→21:05)
[2024-09-24] MEDS: ROSUVASTATIN CALCIUM 10 MG TABLET 5 MG PO (09:21)
[2024-09-24] MEDS: SODIUM CHLORIDE 0.9 % (FLUSH) 10 ML SYRINGE 5 ML IVF ×2 (09:21→21:06)
--- NOTE | 2024-09-24 11:07 | PM.IMPN1 ---
Progress Note: A&P Assessment and plan (1) Atrial fibrillation with RVR: Problem details: - new, history of a flutter, on 120mg ER Diltiazem at HS - last Cardiology visit 06/19 with TTE, coronary calcium scoring, monitor - previously dizzy/lightheaded on Eliquis, amenable to trying again, restarted 09/23 - May TTE reassuring, not repeating during stay - titrated off of gtt overnight, on Q6H IR Diltiazem - plan 09/24: transition from 120mg Diltiazem HS --> 60mg Diltiazem BID with prn IR Diltiazem available overnight - if remains stable with changes above, likely home 09/24 Status: Acute (2) Atrial flutter: Status: Chronic (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 Diltiazem drip initiated and she converted to sinus rhythm overnight, then short acting diltiazem was initiated. This morning, she is tolerating p.o. intake and ambulating without recurrence of symptoms. Eliquis has been initiated and she is tolerating this. Plan is to transition her long-acting diltiazem from 120mg at HS --> 60mg BID, starting this evening. Exam Narrative: Exam Narrative: GEN: Alert and oriented, sitting comfortably in bed HEENT: EOMIs bilaterally, no scleral icterus CV: RRR, No concerning murmurs R: LCTA bilaterally without concerning wheezing Ext: wwp, no concerning edema Skin: No concerning skin lesions or rashes on exposed skin Neuro: Nonfocal Psych: Appropriate Const: Vital Signs, click to edit/add: Vital Signs - 24 hr 09/23/24 17:56 09/23/24 17:57 09/23/24 17:58 Temperature 97.3 F L Pulse Rate 110 H Pulse Rate [Apical ] Pulse Rate [Pulse Oximeter] 116 H Respiratory Rate 16 Blood Pressure 116/79 Blood Pressure [Le ft Arm] Blood Pressure [Ri ght Upper Arm] 116/79 Pulse Oximetry 95 94 Oxygen Delivery Me thod Room Air 09/23/24 18:00 09/23/24 18:10 09/23/24 18:15 Temperature Pulse Rate 99 120 H Pulse Rate [Apical ] Pulse Rate [Pulse Oximeter] Respiratory Rate Blood Pressure Blood Pressure [Le ft Arm] Blood Pressure [Ri ght Upper Arm] Pulse Oximetry 95 95 96 Oxygen Delivery Me thod 09/23/24 18:30 09/23/24 18:41 09/23/24 18:45 Temperature Pulse Rate 105 H 107 H 116 H Pulse Rate [Apical ] Pulse Rate [Pulse Oximeter] Respiratory Rate Blood Pressure 130/111 H Blood Pressure [Le ft Arm] Blood Pressure [Ri ght Upper Arm] Pulse Oximetry 96 94 96 Oxygen Delivery Me thod 09/23/24 18:46 09/23/24 18:47 09/23/24 19:00 Temperature Pulse Rate 125 H 122 H 103 H Pulse Rate [Apical ] Pulse Rate [Pulse Oximeter] Respiratory Rate Blood Pressure 144/108 H Blood Pressure [Le ft Arm] Blood Pressure [Ri ght Upper Arm] Pulse Oximetry 95 95 95 Oxygen Delivery Me thod 09/23/24 19:01 09/23/24 19:02 09/23/24 19:22 Temperature Pulse Rate 101 H 105 H 126 H Pulse Rate [Apical ] Pulse Rate [Pulse Oximeter] Respiratory Rate Blood Pressure 123/89 Blood Pressure [Le ft Arm] Blood Pressure [Ri ght Upper Arm] Pulse Oximetry 96 94 97 Oxygen Delivery Me thod 09/23/24 19:30 09/23/24 19:32 09/23/24 19:45 Temperature 98.0 F Pulse Rate 108 H 111 H Pulse Rate [Apical ] 94 Pulse Rate [Pulse Oximeter] Respiratory Rate 16 Blood Pressure 127/92 H Blood Pressure [Le ft Arm] 144/88 H Blood Pressure [Ri ght Upper Arm] Pulse Oximetry 96 95 94 Oxygen Delivery Me thod Room Air 09/23/24 19:45 09/23/24 22:00 09/23/24 22:02 Temperature 98.0 F Pulse Rate 84 Pulse Rate [Apical ] 88 Pulse Rate [Pulse Oximeter] Respiratory Rate 16 16 Blood Pressure Blood Pressure [Le ft Arm] 124/90 H Blood Pressure [Ri ght Upper Arm] Pulse Oximetry 95 97 Oxygen Delivery Me thod Room Air Room Air 09/24/24 00:00 09/24/24 00:48 09/24/24 02:00 Temperature 97.5 F L 97.6 F Pulse Rate 77 Pulse Rate [Apical ] 78 64 Pulse Rate [Pulse Oximeter] Respiratory Rate 16 18 Blood Pressure Blood Pressure [Le ft Arm] 113/80 109/64 Blood Pressure [Ri ght Upper Arm] Pulse Oximetry 96 Oxygen Delivery Mn thod Room Air 09/24/24 02:30 09/24/24 04:00 09/24/24 07:00 Temperature 97.5 F L Pulse Rate 70 Pulse Rate [Apical ] 72 77 Pulse Rate [Pulse Oximeter] Respiratory Rate 18 18 Blood Pressure Blood Pressure [Le ft Arm] 118/75 Blood Pressure [Ri ght Upper Arm] Pulse Oximetry 98 Oxygen Delivery Mn thod Room Air 09/24/24 07:00 09/24/24 07:00 Temperature 97.5 F L Pulse Rate 80 Pulse Rate [Apical ] 77 Pulse Rate [Pulse Oximeter] Respiratory Rate 18 Blood Pressure Blood Pressure [Le ft Arm] 117/70 Blood Pressure [Ri ght Upper Arm] Pulse Oximetry 93 Oxygen Delivery Mn thod Room Air Labs Labs: Laboratory Results - last 24 hr 09/23/24 09/23/24 18:38 21:35 Lactate 0.8 TSH 0.797 Lab Acknowledgement Test Added
--- NOTE | 2024-09-24 11:37 | PC.SOCIAL ---
Social work internal control specialist met with pt to complete discharge planning assessment. Pt has no concerns about going home and has been pleased with her care here. Pt is aware she can contact social work with questions if they arise.
[2024-09-25 03:00] VITALS: BP 117/76; PULSE 77; RESP 16; TEMP 36.2; O2SAT 94
[2024-09-25 04:50] LABS: Chloride* 102 mmol/L (96-114); Potassium* 3.4 mmol/L (3.6-5.1); Sodium* 136 mmol/L (135-149)
[2024-09-25 04:52] LABS: Creatinine* 0.6 mg/dL (0.5-1.5); Estimated Glomerular Filt Rate 96 ml/min
[2024-09-25 04:53] LABS: Anion Gap 7 mEq/L (7-15); Blood Urea Nitrogen* 17 mg/dL (7-30); Calcium* 8.9 mg/dL (8.4-10.6); Carbon Dioxide* 27 mmol/L (20-32); Glucose* 96 mg/dL (60-115)
[2024-09-25 04:55] VITALS: PULSE 109
[2024-09-25] MEDS: LEVOTHYROXINE 88 MCG TABLET PO (05:35)
[2024-09-25 05:47] VITALS: BP 129/79; PULSE 112
[2024-09-25] MEDS: dilTIAZem 30 MG TABLET PO (05:48)
--- NOTE | 2024-09-25 06:24 | PC.NURSE ---
End of shift note [id number]: Pt alert & oriented x 4 and able to make needs known. She has been denying pain throughout the shift. She transfers/ambulates with SBA using cane. Pt has been afebrile. Pt on tele with sinus rhythm with first degree AV block noted last evening. Pt noted to be in A fib this morning- PRN Diltiazem given per order for apical heart rate of 112. IV to R wrist patent and SL with dressing change completed last evening. Call light within reach.
[2024-09-25 07:00] VITALS: BP 111/83; PULSE 111; PULSE 120; RESP 16; TEMP 36.1; O2SAT 97
--- NOTE | 2024-09-25 07:26 | PC.NURSE ---
Dr. Alvarez updated regarding pt's continued A fib with RVR even after administering PRN IR Diltiazem this morning. See new orders.
[2024-09-25] MEDS: APIXABAN 5 MG TABLET PO (07:46)
[2024-09-25] MEDS: ROSUVASTATIN CALCIUM 10 MG TABLET 5 MG PO (07:46)
[2024-09-25] MEDS: SODIUM CHLORIDE 0.9 % (FLUSH) 10 ML SYRINGE 5 ML IVF (07:48)
[2024-09-25] MEDS: METOPROLOL TARTRATE 25 MG TABLET PO (09:52)
[2024-09-25 11:00] VITALS: BP 108/56; PULSE 77; PULSE 79; RESP 16; TEMP 36.1; O2SAT 95
--- NOTE | 2024-09-25 13:45 | P.DS_ITS ---
DS: Providers Provider Date Seen: 09/25/24 Date of admission: 09/24/24 11:08 Primary care physician: Jimmy Hope MD Admitting Clinician: Annette Ragland MD Attending Physician on discharge: Sidney Alvarez MD Date of Discharge: 09/25/24 DS: Diagnosis Discharge Diagnosis (1) Atrial fibrillation with RVR: Status: Acute Problem details: Patient is had paroxysmal atrial fibrillation and atrial flutter for the past several months. She is primarily in sinus rhythm but having increasing episodes of AFib/flutter with RVR. These episodes are more frequent recently. She does not have cardio-respiratory symptoms such as chest pain palpitations or dyspnea with a rapid heart rate. She catches these on her oximeter monitor. They do make her quite anxious. She has been on diltiazem extended release 120 mg daily. She tolerates this well. However this does not give her adequate rate control when she is in AFib/flutter. In the hospital her diltiazem was increased to 120 mg twice daily (diltiazem extended release 60 mg, 2 tablets twice daily). She got improved rate control in AFib but still not quite adequate with this. She was given metoprolol tartr ate 25 mg. Following this her rate improved and then she converted to sinus rhythm. Discharge plan will be to continue diltiazem 120 mg twice daily plus metoprolol 25 mg p.r.n. resting tachycardia. She is to monitor her symptoms, blood pressure and pulse at home with instructions and parameters to adjust her medication according to blood pressure and pulse and symptoms. She is also going to continue apixaban which was started in the hospital. Outpatient cardiology follow-up to discuss rhythm control (2) Mixed hyperlipidemia: Status: Chronic Problem details: - continue rosuvastatin DS: Summary Hospital Course Hospital Course: 73-year-old female admitted to the hospital with AFib/flutter with RVR. She has had paroxysms of AFib flutter for several months. These are detected on herself monitoring with pulse oximetry. She is not significantly symptomatic with these. They have become more frequent in the last couple months. She has had recurrent emergency department visits. With rate control treatment she often will spontaneously convert back to sinus rhythm and be discharged home. This happened the day before admission on this occasion but then she immediately recurred with AFib/flutter with RVR and return to the hospital. As an outpatient she has been on diltiazem 120 mg daily which she has tolerated well. On this admission she was treated again with diltiazem initially IV then switched to extended-release diltiazem 60 mg b.i.d.. She did not get adequate rate control with this. Diltiazem was increased to 120 mg b.i.d. and she got improved rate control with this but still not quite adequate. She received metoprolol tartrate 25 mg and got rate control and then converted back to sinus rhythm. She has tolerated this well though blood pressure has been relatively low she is asymptomatic. At the time of discharge she will be on diltiazem extended release 60 mg 2 tablets twice daily. Parameters for use of this medication are that she will take 2 tablets twice daily unless her systolic pressure is less than 100 or her resting pulse is less than 70 in which case she will only take 1 tablet. If she has a resting heart rate over 100 she is to take an extra metoprolol tartrate 25 mg daily every 4 hours as needed. She will be monitoring her blood pressure and pulse at home. She is to follow up with Dr. Hope next week for recheck of this heart rate strategy. Patient has decided to begin apixaban again as well. She is considering consultation with cardiac substation operator apprentice. Status at Discharge Overall status at discharge: patient is progressing back to baseline Time Spent with Patient Time attestation: Total time spent providing and/or coordinating discharge services: 50 minutes Time spent: Greater than 30 minutes Exam Narrative: Exam Narrative: She is alert and appears in no distress. Respirations are clear to auscultation. Cardiovascular: S1, S2, regular rate and rhythm. She is examined during sinus rhythm. Abdomen is soft without tenderness or mass. No edema. Const: Vital Signs, click to edit/add: Vital Signs - 24 hr 09/24/24 14:13 09/24/24 15:00 09/24/24 15:00 Temperature 96.6 F L Pulse Rate 77 Pulse Rate [Apical ] 78 78 Respiratory Rate 18 18 Blood Pressure [Le ft Arm] 95/64 Pulse Oximetry 94 Oxygen Delivery Me thod Room Air 09/24/24 20:14 09/24/24 23:00 09/24/24 23:06 Temperature 98.4 F Pulse Rate 80 Pulse Rate [Apical ] 70 66 Respiratory Rate 18 18 Blood Pressure [Le ft Arm] 120/84 Pulse Oximetry 96 Oxygen Delivery Me thod Room Air 09/24/24 23:28 09/25/24 03:00 09/25/24 04:55 Temperature 97.1 F L 97.2 F L Pulse Rate 109 H Pulse Rate [Apical ] 66 77 Respiratory Rate 18 16 Blood Pressure [Le ft Arm] 126/85 117/76 Pulse Oximetry 96 94 Oxygen Delivery Me thod Room Air Room Air 09/25/24 05:47 09/25/24 07:00 09/25/24 07:00 Temperature Pulse Rate 120 H Pulse Rate [Apical ] 112 H 111 H Respiratory Rate 16 Blood Pressure [Le ft Arm] 129/79 Pulse Oximetry Oxygen Delivery Me thod 09/25/24 07:00 09/25/24 11:00 09/25/24 11:00 Temperature 97.0 F L 97.0 F L Pulse Rate 77 Pulse Rate [Apical ] 111 H 79 Respiratory Rate 16 16 Blood Pressure [Le ft Arm] 111/83 108/56 L Pulse Oximetry 97 95 Oxygen Delivery Me thod Room Air Room Air Documenting provider has reviewed patient's vital signs: yes DS: Data Data Completed and Pending Labs on day of discharge: Labs from last 24 hours 09/25/24 04:20 Sodium 136 Potassium 3.4 L Chloride 102 Carbon Dioxide 27 Anion Gap 7 BUN 17 Creatinine 0.6 Estimated Creat Clear 48.30 Estimated GFR 96 Glucose 96 Calcium 8.9 Discharge Plan Discharge Disposition: Home, Self-Care Date of Admission: 09/24/24 11:08 Attending Provider on Discharge: Pao Cohen Primary Care Provider: Jimmy Hope Condition: Improved Anticipated Discharge Date/Time: 09/25/24 14:31 Discharge Medications: New diltiazem HCl 60 mg capsule,extended release 12 hr 60 mg PO BID Qty: 60 2RF Eliquis 5 mg tablet 5 mg PO BID Qty: 60 2RF diltiazem HCl 60 mg capsule,extended release 12 hr 120 mg PO BID Qty: 60 0RF metoprolol tartrate 25 mg tablet 25 mg PO Q4H PRNQty: 60 0RF Rx Instructions: Take 1 tablet as needed for resting heart rate greater than 100 Continued levothyroxine 88 mcg tablet 88 mcg PO DAILY vitamin B complex [Vitamins B Complex] Tablet 1 tab PO DAILY cholecalciferol (vitamin D3) 25 mcg (1,000 unit) tablet 50 mcg PO DAILY rosuvastatin 5 mg tablet 5 mg PO HS Discontinued aspirin 81 mg capsule 81 mg PO DAILY diltiazem HCl 120 mg capsule,extended release 24 hr 120 mg PO DAILY Qty: 30 1RF Discharge Orders: Discharge Order (Routine); Ordered 09/25/24 Ordered By: Tucker Alvarez Patient Education: Metoprolol (By mouth), Diltiazem (By mouth), Apixaban (By mouth), A-fib (Atrial Fibrillation) (DC) Additional Instructions: With your atrial fibrillation and atrial flutter, the short term goal is to keep your resting heart rate below 100 and your systolic blood pressure greater than 100. If your heart rate is over 100 or your systolic blood pressure is less than 100 it is not necessarily an emergency if you feel okay. You can wait a couple hours and recheck your blood pressure and pulse and monitor your symptoms. Most people do not become symptomatic until there systolic blood pressure is less than 90 or there pulse is over 120-130. Take diltiazem ER 60 mg 2 tablets twice a day. Before taking the medicine check your blood pressure and pulse. If your systolic blood pressure is less than 100 or if your resting pulse is less than 70 take only 1 tablet of diltiazem 60 mg. If your resting heart rate is greater than 100, take metoprolol 25 mg every 4 hours as needed. You can carry the metoprolol with you when you are outside the home. You can take both diltiazem and metoprolol each day. If you are taking both you should check your blood pressure to make sure your systolic blood pressure is over 100. Activity Level: Activity as Tolerated Discharge Diet: Regular Follow Up Appointments: Jimmy Hope MD [Primary Care Provider] - (Follow-up in 1 week.) Forms: [employer] Info Instructions
--- NOTE | 2024-09-25 15:14 | PC.NURSE ---
AT BEGINNING OF SHIFT, PATIENT'S TELE SHOWING AFIB WITH RVR. SCHEDULED DILTIAZEM AND METOPROLOL ORDERED. AT 1100 PATIENT CONVERTED TO NSR. MD UPDATED AND PATIENT AMBULATED IN HALLWAY WITH NO REPORTS OF SOB OR DIZZINESS. PATIENT MAINTAINED IN NSR. REVIEWED DC INSTRUCTIONS WITH PATIENT AND HER . REVIEWED PARAMETERS FOR HOME MEDS AND SIGNS/SYMPTOMS. SALINE LOCK DC'D AND PATIENT DC'D HOME WITH .
== END 2024-09-25 15:05 | disposition home or self-care (01) | DRG 310 ==
LOC: ED 19:27 → MEDSURG 19:36
PROVIDERS: Family Medicine; Admitting Provider Family Medicine; Emergency Provider Family Medicine; PCP Surgery; Visit Provider Family Medicine
DX: I48.20 Chronic atrial fibrillation, unspecified (principal); I48.92 Unspecified atrial flutter; G72.41 Inclusion body myositis [IBM]; E78.2 Mixed hyperlipidemia
CPT/HCPCS: 36415; 80048; 80076; 83605; 83735; 84443; 84484; 85025; 93005; 93246; 94761; 99284; 99285; G0378; A9270; J3490; J7030

== ENCOUNTER 2025-06-12 14:51 | Outpatient (CLI) | payer MEDICARE, BC, SELFPAY ==
--- NOTE | 2025-06-12 15:00 | CRLHL7_ITS ---
For Patients: As a result of the Century Cures Act, medical imaging exams and procedure reports are released immediately into your electronic medical record. You may view this report before your referring provider. If you have questions, please contact your health care provider. INDICATION: Pituitary adenoma. TECHNIQUE: Multisequence multiplanar MRI of the brain prior to and following administration of 20 cc Dotarem gadolinium-based intravenous contrast. Pituitary protocol was utilized. COMPARISON: MRI brain dated 04/12/2022. FINDINGS: Unchanged 13 x 16 x 14 mm hypoenhancing lesion indistinguishable from the right anterior pituitary gland. Similar leftward deviation of the pituitary infundibulum. No definitive cavernous sinus invasion. The cavernous internal carotid arteries and optic chiasm are within normal limits. No evidence of acute ischemia. Similar scattered as well as confluent T2 prolongation within the white matter of both cerebral hemispheres. Stable small chronic lacunar type infarcts within the centrum semiovale and right cerebellum. No focus of abnormal brain parenchymal or leptomeningeal enhancement. Incidental right cerebellar developmental venous anomaly. The ventricles are unchanged in size. Normal calvarial bone marrow signal intensity. Symmetric globes. Mild scattered paranasal sinus mucosal thickening. IMPRESSION: 1. Stable 16 mm hypoenhancing lesion within the sella turcica most consistent with pituitary macroadenoma. 2. Similar leftward deviation of the pituitary infundibulum. No convincing cavernous sinus invasion. 3. Similar chronic small-vessel ischemic changes with few scattered chronic lacunar type infarcts. Dictated by Matthias Sotelo MD @ 06/13/2025 2:36:23 PM (Electronically Signed)
== END 2025-06-12 14:52 | disposition home or self-care (01) ==
LOC: MRI 14:52
PROVIDERS: PCP Surgery; Visit Provider Surgery
DX: D35.2 Benign neoplasm of pituitary gland (principal); I67.82 Cerebral ischemia
CPT/HCPCS: 70553; A9575